=== PATIENT | female | born 1985 | race Caucasian/White ===

== ENCOUNTER 2020-10-06 23:29 | Emergency (ER) | payer MEDICAID, SELFPAY ==
[2020-10-06 23:42] VITALS: BP 129/66; PULSE 72; RESP 18; TEMP 36.6; O2SAT 95; BMI 25.2
--- NOTE | 2020-10-06 23:59 | W.ED.NAVMDI ---
HPI - Nausea/Vomiting/Diarrhea General: Chief complaint: Nausea/Vomiting/Diarrhea Stated complaint: n/v Time Seen by Provider: 10/06/20 23:50 Source: patient Mode of arrival: ambulatory Limitations: no limitations History of Present Illness: HPI Narrative: 85-year-old female who is currently 10 weeks states that she has been having nausea vomiting over the last 3 days. States it got much worse tonight and she has vomited multiple times and was able to keep anything down. She denies any worsening improving factors. She denies any vaginal bleeding or abdominal pain. Denies any fevers. Associated nausea: Yes Associated symtoms: Reports nausea; Denies chest pain, dysuria or headache(s) Review of Systems Const: Denies: fever(s), chills, body aches or change in appetite Eyes: Denies: blurry vision or eye discomfort ENMT: Denies: throat pain or dental pain Card: Denies: chest pain Resp: Denies: dyspnea GI: Reports: nausea and vomiting : Denies: dysuria Musc: Denies: neck pain or back pain Skin/Breast: Denies: rash Neuro: Denies: headache(s) Psych: Denies: depression Naseem/Lymph: Denies: easy bruising All/Imm: Denies: urticaria Physical Exam Const: COMMON NORMALS: no acute distress, patient oriented x3 and healthy appearing HENMT: COMMON NORMALS: normocephalic and atraumatic HEAD & SCALP: normocephalic and atraumatic Eye: COMMON NORMALS: Equal, round and reactive pupils present and EOMs intact bilaterally PUPIL: Yes Equal, round and reactive pupils present Neck/C-Spine: COMMON NORMALS: full ROM and supple Chest: COMMONS NORMALS: normal inspection of the chest and normal palpation of entire chest wall Resp: COMMON NORMALS: normal respiratory effort, No retractions, No use of accessory muscles and clear to auscultation bilaterally AUSCULTATION: clear to auscultation bilaterally Cardio: COMMON NORMALS: regular rate, regular rhythm and No murmurs present (Cardio) RATE: regular rate RHYTHM: regular rhythm GI: COMMON NORMALS: Normal to inspection, nondistended, normoactive bowel sounds present, Soft to palpation, non-tender and no masses PALPATION: Yes Soft to palpation Extremity: COMMON NORMALS: normal to inspection and full ROM Neuro: COMMON NORMALS: patient oriented x3, moves all extremities and no focal motor deficits Psych: COMMON NORMALS: mental status grossly normal, Normal thought process present and cooperative THOUGHT PROCESS: Normal thought process present Skin: COMMON NORMALS: no rashes or lesions noted and no wounds GENERAL SKIN EXAM: no rashes or lesions noted Course Vital Signs: Vital signs: Vital Signs Temperature 97.8 F 10/06/20 23:42 Pulse Rate 72 10/06/20 23:42 Respiratory Rate 18 10/06/20 23:42 Blood Pressure 94/38 10/07/20 01:13 Pulse Oximetry 100 10/07/20 01:13 MDM - Nausea/Vomiting/Diarrhea MDM Narrative: Medical decision making narrative: Patient presents here with vomiting in . She feels much improved here after IV fluids and Reglan. Will prescribe her Reglan for home. Her blood work here is all normal. Bedside ultrasound showed an IUP consistent with dates heart rate of 152. She is to follow-up with PCP and return if worsening. Lab Data: Labs: Lab Results 10/06/20 10/06/20 Range/Units 23:50 23:50 WBC 15.7 H (4.0-10.0) 10^3/ uL RBC 4.32 (4.1-5.3) 10^6/u L Hgb 13.4 (11.5-15.3) g/dL Hct 39.7 (37.0-47.0) % MCV 91.9 (81-99) fL MCH 31.0 (28.0-34.0) pg MCHC 33.8 (30.0-36.0) g/dL RDW 11.9 L (12.1-15.1) % Plt Count 307 (130-400) 10^3/c mm MPV 10.7 H (7.4-10.4) fL Neut % (Auto) 86.9 % Lymph % (Auto) 7.9 % [place] % (Auto) 4.3 % Eos % (Auto) 0.3 % Baso % (Auto) 0.2 % Neut # (Auto) 13.63 H (1.8-7.7) 10^3/u L Lymph # (Auto) 1.2 (0.8-4.8) 10^3/u L [place] # (Auto) 0.7 (0.2-0.9) 10^3/u L Eos # (Auto) 0.1 (0.0-0.8) 10^3/u L Baso # (Auto) 0.0 (0.0-0.1) 10^3/u L Nucleated RBC % (a uto) 0 % Nucleated RBCs # 0.0 /100WBC Sodium 135 L (136-145) mmol/L Potassium 3.7 (3.5-5.1) mmol/L Chloride 100 (98-107) mmol/L Carbon Dioxide 22 (22-29) mmol/L Anion Gap 16.7 (5-19) BUN 7 (6-20) mg/dL Creatinine 0.5 (0.5-0.9) mg/dL GFR Calculation 141.2 H (90-130) mL/min Glucose 105 (65-115) mg/dL Calculated Osmolal ity 278 L (285-295) mOsm/k g Calcium 9.2 (8.5-10.5) mg/dL Total Bilirubin 0.6 (0.15-1.2) mg/dL AST 13 (0-32) U/L ALT < 5 (0-33) U/L Alkaline Phosphata se 56 (35-105) IU/L Total Protein 7.3 (6.6-8.7) g/dL Albumin 4.2 (3.5-5.2) g/dL Globulin 3.1 (1.3-4.6) g/dL Lipase 21 (13-60) U/L Discharge Plan Discharge Patient Disposition: Home Clinical Impression: Vomiting Qualifiers: Vomiting type: unspecified Vomiting Intractability: non-intractable Nausea presence: with nausea Qualified Code(s): R11.2 - Nausea with vomiting, unspecified Condition: Stable Prescriptions: New Reglan 10 mg tablet 10 mg PO Q6H PRN (Reason: nausea and vomiting) Qty: 20 RF: 0 Discharge Orders: Discharge ED (Routine); Ordered 10/07/20 Ordered By: Curt Lebron Discharge Diet: Advance as tolerated Discharge Activity: Resume usual activity Patient Instructions: Hyperemesis Gravidarum (ED), Acute Nausea and Vomiting (ED) Coding Level of Care Code ED Quilting Machine Operator for g Fwd Exam Comprehensive
[2020-10-07 00:02] LABS: Basophils % 0.2 %; Eosinophils # 0.1 10^3/uL (0.0-0.8); Eosinophils % 0.3 %; Hematocrit 39.7 % (37.0-47.0); Hemoglobin 13.4 g/dL (11.5-15.3); Lymphocytes # 1.2 10^3/uL (0.8-4.8); Lymphocytes % 7.9 %; Mean Corpuscular HGB Conc 33.8 g/dL (30.0-36.0); Mean Corpuscular Volume 91.9 fL (81-99); Mean Platelet Volume 10.7 fL (7.4-10.4); Monocytes # 0.7 10^3/uL (0.2-0.9); Monocytes % 4.3 %; Neutrophils # 13.63 10^3/uL (1.8-7.7); Neutrophils % 86.9 %; Nucleated Red Blood Cells % 0 %; Platelet Count 307 10^3/cmm (130-400); Red Blood Count 4.32 10^6/uL (4.1-5.3); Red Cell Distribution Width 11.9 % (12.1-15.1); White Blood Count 15.7 10^3/uL (4.0-10.0)
[2020-10-07] MEDS: metoclopramide 5 mg/mL SDV 2 mL 10 MG IVP (00:03)
[2020-10-07] MEDS: sodium chloride 0.9% 1,000 ML 999 ML IV (00:03)
[2020-10-07] MEDS: diphenhydrAMINE 50 mg/mL SDV 1mL IVP (00:03)
[2020-10-07 00:23] LABS: Alanine Aminotransferase < 5 U/L (0-33); Albumin Level 4.2 g/dL (3.5-5.2); Alkaline Phosphatase 56 IU/L (35-105); Anion Gap 16.7 (5-19); Aspartate Amino Transferase 13 U/L (0-32); Blood Urea Nitrogen 7 mg/dL (6-20); Calcium 9.2 mg/dL (8.5-10.5); Carbon Dioxide 22 mmol/L (22-29); Chloride 100 mmol/L (98-107); Globulin 3.1 g/dL (1.3-4.6); Glomerular Filtration Rate 141.2 mL/min (90-130); Glucose 105 mg/dL (65-115); Lipase 21 U/L (13-60); Osmolality Calculated 278 mOsm/kg (285-295); Potassium 3.7 mmol/L (3.5-5.1); Sodium 135 mmol/L (136-145); Total Bilirubin 0.6 mg/dL (0.15-1.2); Total Protein 7.3 g/dL (6.6-8.7)
[2020-10-07] MEDS: ondansetron 2 mg/ML SDV 2 mL 4 MG IVP (01:12)
[2020-10-07 01:13] VITALS: BP 94/38; O2SAT 100
[2020-10-07 01:42] VITALS: BP 106/65; PULSE 75; RESP 18; TEMP 37.3; O2SAT 96
== END 2020-10-07 01:45 | disposition home or self-care (01) ==
PROVIDERS: Emergency Provider Emergency Medicine
DX: O26.891 Other specified pregnancy related conditions, first trimester (principal); R11.2 Nausea with vomiting, unspecified; Z3A.10 10 weeks gestation of pregnancy
CPT/HCPCS: 80053; 83690; 85025; 96361; 96374; 96375; 99283; J1200; J2405; J2765; J7030

== ENCOUNTER 2021-03-27 17:24 | Inpatient (IN) | payer MEDICAID, SELFPAY ==
[2021-03-27] VITALS (52 sets, daily range): BP systolic 93–150; BP diastolic 50–80; PULSE 65–105; TEMP 36.6–36.9; O2SAT 90–99; BMI 31.9
[2021-03-27 17:37] LABS: Basophils % 0.3 %; Eosinophils # 0.1 10^3/uL (0.0-0.8); Eosinophils % 0.5 %; Hematocrit 36.1 % (37.0-47.0); Hemoglobin 12.1 g/dL (11.5-15.3); Mean Corpuscular HGB Conc 33.5 g/dL (30.0-36.0); Mean Corpuscular Hemoglobin 30.6 pg (28.0-34.0); Mean Corpuscular Volume 91.4 fl (81-99); Mean Platelet Volume 12.4 fL (7.4-10.4); Monocytes # 0.9 10^3/uL (0.2-0.9); Monocytes % 5.8 %; Neutrophils # 12.29 10^3/uL (1.8-7.7); Neutrophils % 79.7 %; Nucleated Red Blood Cells % 0 %; Platelet Count 273 10^3/cmm (130-400); Red Blood Count 3.95 10^6/uL (4.1-5.3); Red Cell Distribution Width 12.3 % (12.1-15.1); White Blood Count 15.4 10^3/uL (4.0-10.0)
[2021-03-27 17:46] LABS: Amphetamines Screen Urine Negative (Negative); Barbiturates Screen Urine Negative (Negative); Benzodiazepines Screen Urine Negative (Negative); Cocaine Screen Urine Negative (Negative); Opiate Screen Urine Negative (Negative); PCP Screen Urine Negative (Negative); THC Screen Urine Negative (Negative)
[2021-03-27] MEDS: ampicillin 2,000 MG in sodium chloride 0.9% (plus) 50 ML 100 MG IV (17:48)
[2021-03-27] MEDS: dextrose 5%-lactated ringers 1,000 ML 125 ML IV (17:49)
[2021-03-27 18:29] LABS: Actim Prom Positive
--- NOTE | 2021-03-27 18:34 | PC.NURSE ---
COVID PT REFUSING COVID SWAB, SO THIS SHELTER ADVOCATE WENT OVER VISITING POLICY WITH HER, SHE WAS TOLD THAT SINCE SHE HAS NOT BEEN NOR DOES SHE WANT TO BE TESTED THAT SHE CAN ONLY HAVE HER ONE VISITOR TO WHOLE ENTIRE VISIT. SHE VOICES UNDERSTANDING.
[2021-03-27] MEDS: acetaminophen 325 mg Tablet 650 MG PO (19:22)
[2021-03-27] MEDS: lactated ringers 1,000 ML 999 ML IV (19:31)
--- NOTE | 2021-03-27 20:30 | ANES.PREANE2 ---
Pre-Anesthetic Assessment Pre-Anesthetic Assessment: Height/Weight: Height 1.73 m Weight 95.254 kg Temp Pulse BP Pulse Ox 97.9 F 79 115/60 96 03/27/21 19:29 03/27/21 20:59 03/27/21 20:59 03/27/21 20:58 Preop Diagnosis: IUP Proposed Procedure: CLEVE Was Beta Lori taken within 24 hours: N/A Was Clonidine taken within 24 hours: N/A Last Intake: 12:00 Social: Social History: No alcohol and No tobacco Exam: Pre-Anes Outpt Exam: alert and oriented x 3 Airway: Submandibular: WNL Cervical ROM: WNL MP: 2 Dentition: Full History/ROS: No significant history except as noted Pulmonary: Pulmonary: None reported CV/HEM: CV/HEM: None reported : : None reported Hepatic: Hepatic: None reported GI: GI: GERD Metabolic: Metabolic: None reported Musc/skel: Musc/skel: None reported Neuropsych: Neuropsych: Syncope (a few episodes many years ago. due to heat, no problems since.) Anesthetic Plan: ASA status: 2 Anesthesia: Anesthesia Evaluation, Choice and Regional (specify below) (Epidural) Risk of > 500 ml blood loss (7ml/kg in children): No Meds/Allergies Current Medications: Current Medications Generic Name Dose Route Start Last Admin Trade Name Freq PRN Reason Stop Dose Admin Acetaminophen 650 mg 03/27/21 17:20 03/27/21 19:22 Acetaminophen 32 5 Mg Tablet PO 650 mg Q6H PRN Administration Mild pain or temp > 100.4 Dextrose/Lactated Ringer's 1,000 mls @ 125 m ls/hr 03/27/21 17:30 03/27/21 17:49 Dextrose 5%-Lact ated Ringers IV 125 mls/hr .Q8H IRA Administration PFSH Anesthesia PFSH: Social History Smoking and tobacco status: former smoker Female Reproductive History: : 2 Data Anesthesia CBC & Chem 7: 03/27/21 17:00 Other Labs: Laboratory Results - last 48 hr 03/27/21 03/27/21 03/27/21 16:54 17:00 17:00 WBC 15.4 H RBC 3.95 L Hgb 12.1 Hct 36.1 L MCV 91.4 MCH 30.6 MCHC 33.5 RDW 12.3 Plt Count 273 MPV 12.4 H Neut % (Auto) 79.7 Lymph % (Auto) 13.0 [place] % (Auto) 5.8 Eos % (Auto) 0.5 Baso % (Auto) 0.3 Neut # (Auto) 12.29 H Lymph # (Auto) 2.0 [place] # (Auto) 0.9 Eos # (Auto) 0.1 Baso # (Auto) 0.0 Nucleated RBC % (auto) 0 Nucleated RBCs # 0.0 Insulin-like GF I Positive Urine Opiates Screen Negative Ur Barbiturates Screen Negative Ur Phencyclidine Scrn Negative Ur Amphetamines Screen Negative U Benzodiazepines Scrn Negative Urine Cocaine Screen Negative U Marijuana (THC) Screen Negative Cardiac Studies: No Data to Display
--- NOTE | 2021-03-27 21:09 | ANES.PROC ---
Anesthesia Procedures Procedure/Date: 03/27/21 CLEVE Epidural: Time Out Performed: Yes Consents Signed: Procedure Consent Consent: from patient, risks and benefits reviewed and patient agrees to proceed Lumbar Level: L3-L4 Epidural position: sitting Epidural procedure: sterile prep of area, 1% lidocaine to numb the area, 18 g needle, negative for paresthesia passed, test dose given, 1.5% xylocaine 1:200k epi, placed PCEA, no systemic response, sterile dressing applied, L.U.D. no apparent complications and 0.2% Ropiavacaine @ mls/hr (13) Additional Comments: BILL at 6 taped at 13 at skin.
[2021-03-27] MEDS: ampicillin 1,000 MG in sodium chloride 0.9% (plus) 50 ML 100 MG IV (21:28)
[2021-03-27] MEDS: ondansetron 2 mg/ML SDV 2 mL 4 MG IVP (22:23)
[2021-03-27] MEDS: oxytocin 30 UNIT/500 ML BAG IV (23:10)
[2021-03-28] VITALS (41 sets, daily range): BP systolic 96–148; BP diastolic 47–77; PULSE 66–105; RESP 16–18; TEMP 36.3–37.2
[2021-03-28] MEDS: ampicillin 1,000 MG in sodium chloride 0.9% (plus) 50 ML 100 MG IV (01:36)
--- NOTE | 2021-03-28 04:00 | PM.OPHPUD ---
Labor & Delivery H&P Update Date of Procedure: March 28, 2021 Date H&P Performed: 03/18/21 H&P update information: I have reviewed H&P completed within last 30 days, I have examined patient prior to procedure and Changes to prior documentation as noted here Changes to previous documentation: Patient has spontaneous rupture of membranes at home evening prior to delivery and dilated complete cervical dilatation before vaginal delivery. Admission Diagnosis: Preop diagnosis: IUP Primary indication for procedure: 36-week intrauterine with spontaneous rupture of membranes at home in active labor. Planned procedure: Vaginal delivery.
--- NOTE | 2021-03-28 04:05 | PM.DELIVERY ---
Delivery Note: Date of delivery: March 28, 2021 Pre-Delivery Course: This 35-year-old 2 now para 2 female had a last menstrual period which was questionable and an EDC by early ultrasound of April 22, 2021. She began care early in her course with this physician was followed throughout her course without significant problems or concerns. Maternal blood type was a positive with antibody screen negative. Rubella was immune and group B strep was not done as she came in before that was completed. She had spontaneous rupture membranes at home the evening prior to delivery. Delivery: This 36-week 4-day gestation female came in with ruptured membranes from late yesterday evening. She was given Pitocin augmentation as she was not javed well enough and dilated to complete cervical dilatation. She did receive epidural anesthesia when she began making change and becoming very uncomfortable. She dilated to complete cervical dilatation in the teacher early childhood development hours and was completely dilated 41. She began pushing at 03 29 and the infant delivered at 03 44. The was delivered in right occiput anterior position and then the mouth and nose were suctioned at the perineum followed by the delivery of the left shoulder anteriorly followed by the right shoulder. The infant was suctioned again then and placed on mother's abdomen. The baby was vigorous from the beginning and had Apgars of 10 and 10 at 1 and 5 minutes respectively. The infant weighed 6 pound 8 ounces. The placenta delivered spontaneously at 03 49. There was no lacerations and no repair necessary. Estimated blood loss was approximately 132 mL. There were no complications. At present time both mother and infant are doing very well. Post-Delivery Status: Patient is doing well and will be monitored for routine post delivery care. A&P Assessment and plan (1) Normal spontaneous vaginal delivery: Patient is doing extremely well and will be followed for routine post delivery care. Status: Acute Coding Level of Care Code Acute Project Director for [employer] Diagnoses Normal spontaneous vaginal delivery O80
[2021-03-28] MEDS: benzocaine-menthol 78 gm Canister 1 SPRAY TOPICAL (06:41)
[2021-03-28] MEDS: lanolin oint 7 gm 1 APPLIC TOPICAL (06:41)
[2021-03-28] MEDS: ibuprofen 800 mg tablet PO ×3 (09:18→21:00)
[2021-03-28] MEDS: docusate sodium 100 mg Capsule PO (09:18)
[2021-03-28] MEDS: pantoprazole DR 40 mg Tablet PO (09:18)
[2021-03-28] MEDS: prenatal vitamin Capsule 1 CAP PO (09:18)
[2021-03-28 16:07] LABS: Hematocrit 32.8 % (37.0-47.0); Hemoglobin 11.1 g/dL (11.5-15.3); Mean Corpuscular HGB Conc 33.8 g/dL (30.0-36.0); Mean Corpuscular Hemoglobin 31.6 pg (28.0-34.0); Mean Corpuscular Volume 93.4 fl (81-99); Mean Platelet Volume 11.8 fL (7.4-10.4); Platelet Count 233 10^3/cmm (130-400); Red Blood Count 3.51 10^6/uL (4.1-5.3); Red Cell Distribution Width 12.6 % (12.1-15.1); White Blood Count 15.6 10^3/uL (4.0-10.0)
[2021-03-29 04:40] VITALS: RESP 16
[2021-03-29 04:43] VITALS: BP 116/63; PULSE 72; TEMP 36.3
--- NOTE | 2021-03-29 07:26 | P.DS_ITS ---
Discharge Providers CLINICAL RESEARCH MONITOR Date of Admission: 03/27/21 17:24 Date of Discharge: 03/29/21 Attending Provider at Admission: Maikel Calles MD Attending Provider at Discharge: Maikel Calles MD Diagnoses at Discharge Discharge Diagnosis (1) Normal spontaneous vaginal delivery: Status: Acute Reason for Visit Reason for Visit: PROM Hospital Course Hospital Course Patient delivered by spontaneous vaginal delivery. Patient arrived at [facility] after spontaneous rupture membranes at home at 36 weeks and 3 days gestation. She went into active labor and was augmented with Pitocin. She was also given ampicillin intravenously for group B strep prophylaxis and she did receive 3 doses during her labor. Since delivery, she has done extremely well. She has had just mild lochia and is ambulating well and tolerating a regular diet. She is struggling a little bit with breast-feeding but is working with nurses to improve that. It is felt that she will be stable to be discharged home this afternoon. Information Peripartum Data: Infant Delivery Method: Vaginal Physical Exam Const: COMMON NORMALS: no acute distress, no limitations and healthy appearing HENMT: COMMON NORMALS: moist oral mucous membranes Resp: COMMON NORMALS: normal respiratory effort, No retractions and No use of accessory muscles Cardio: COMMON NORMALS: regular rate and regular rhythm RATE: regular rate RHYTHM: regular rhythm GI: COMMON NORMALS: Normal to inspection, nondistended, normoactive bowel sounds present, Soft to palpation and non-tender (Fundus is firm and well below the umbilicus.) PALPATION: Yes Soft to palpation Extremity: COMMON NORMALS: normal to inspection, full ROM, capillary refill normal and no clubbing, cyanosis or edema Neuro: COMMON NORMALS: moves all extremities, no focal motor deficits and no sensory deficits noted Psych: COMMON NORMALS: mental status grossly normal, cooperative, normal affect and activity/motor behavior normal Skin: COMMON NORMALS: no rashes or lesions noted GENERAL SKIN EXAM: no rashes or lesions noted Urinary Catheter Management^: [place]: Cath Placed During This Visit: yes, but has since been removed by the nurse Reason for Continuing Indwelling Catheter: Decision to DC Catheter Urinary Catheter Date of Insertion: 03/27/21 Urinary Catheter Time of Insertion: 22:01 Date Urinary Catheter Removed: 03/28/21 Time Urinary Catheter Discontinued: 03:25 Discharge Data Data Completed and Pending: Labs from last 24 hours 03/28/21 16:00 WBC 15.6 H RBC 3.51 L Hgb 11.1 L Hct 32.8 L MCV 93.4 MCH 31.6 MCHC 33.8 RDW 12.6 Plt Count 233 MPV 11.8 H Vitals: Last Vital Signs Temp 97.3 F L 03/29/21 04:43 Pulse 72 03/29/21 04:43 Resp 16 03/29/21 04:40 BP 116/63 03/29/21 04:43 Pulse Ox 98 03/27/21 22:33 Discharge Plan Discharge Patient Disposition: Home Condition: Stable Prescriptions: New docusate sodium 100 mg Capsule 100 mg PO BID Qty: 60 RF: 0 ibuprofen 800 mg Tablet 800 mg PO TID Qty: 90 RF: 0 Lanolin (HPA) 100 % Cream 1 applic topical PRN PRN (Reason: Dryness) Qty: 90 RF: 1 Continued Reglan 10 mg tablet 10 mg PO Q6H PRN (Reason: nausea and vomiting) Qty: 20 RF: 0 omeprazole 20 mg capsule,delayed release(DR/EC) RF: 0 M- Plus 27 mg iron- 1 mg tablet RF: 0 Discharge Orders: Discharge Order (Routine); Ordered 03/29/21 Ordered By: Maikel Calles Referrals: Maikel Calles MD [Physician] - 6 Weeks Discharge Diet: Usual diet Discharge Activity: Resume usual activity Patient Instructions: Opioid Safety Discharge Attestations CLINICAL RESEARCH MONITOR Time Spent in Discharge Care*: less than 30 min Specific Discharge Activities: Specific discharge activities: educating patient, documenting/other paperwork and evaluating patient/reviewing data Coding Level of Care Code Acute Wellness Educator for Chg Fwd Diagnoses Normal spontaneous vaginal delivery O80
[2021-03-29] MEDS: prenatal vitamin Capsule 1 CAP PO (09:36)
[2021-03-29] MEDS: ibuprofen 800 mg tablet PO ×2 (09:36→16:12)
[2021-03-29] MEDS: pantoprazole DR 40 mg Tablet PO (09:37)
[2021-03-29 11:47] VITALS: RESP 16; TEMP 36.3
[2021-03-29 11:48] VITALS: BP 106/56; PULSE 77
--- NOTE | 2021-03-29 13:22 | ANE.PACU2 ---
Inpatient post-anesthesia follow up: Airway intact: Yes Vital signs: Temperature 97.4 F Pulse Rate 77 Respiratory Rate 16 Blood Pressure 106/56 Pulse Oximetry 98 Oxygen Delivery Me thod Room Air Oxygen Flow Rate Fraction of Inspir ed Oxygen Hydration adequate: Yes Nausea and vomiting: No Pain level: 2 Mental status: Baseline
[2021-03-29 17:04] VITALS: BP 124/69; PULSE 83; RESP 16; TEMP 36.5
== END 2021-03-29 17:20 | disposition home or self-care (01) | DRG 807 ==
LOC: OPOB 17:27 → OBGYN 17:27
PROVIDERS: Admitting Provider Family Medicine; Visit Provider Family Medicine
DX: O80 Encounter for full-term uncomplicated delivery (principal); Z37.0 Single live birth; Z3A.36 36 weeks gestation of pregnancy
CPT/HCPCS: 36415; 51702; 59025; 59409; 80306; 84112; 85025; 85027; 98960; 99211; J0290; J2405; J2795